=== PATIENT | female | born 2000 | race African-American/Black ===

== ENCOUNTER 2022-03-18 15:56 | Emergency (ER) | payer OTHER ==
[2022-03-18] MEDS ORDERED: Bacitracin 1 PK ONE (16:42)
== END 2022-03-18 16:50 | disposition home or self-care (01) ==
LOC: CSHERS 15:56
DX: L05.01 Pilonidal cyst with abscess (principal)
CPT/HCPCS: 10080

== ENCOUNTER 2022-09-27 12:24 | Emergency (ER) | payer OTHER | END 2022-09-27 15:39 | disposition home or self-care (01) | LOC: CSHERS 12:24 | DX: S93.401A Sprain of unspecified ligament of right ankle, initial encounter (principal); M62.838 Other muscle spasm; W50.0XXA Accidental hit or strike by another person, initial encounter; Y93.66 Activity, soccer ==